=== PATIENT | female | born 1955 | race Caucasian/White ===

== ENCOUNTER 2025-04-20 09:13 | Day surgery (SDC) | payer MEDICARE, SELFPAY ==
[2025-04-19 09:47] VITALS: BMI 28.8
[2025-04-20] MEDS ORDERED: PROPOFOL 40 ML ONE (09:55)
[2025-04-20] MEDS ORDERED: Famotidine/PF 20 mg/2ml Vial ONE (10:32)
[2025-04-20] MEDS ORDERED: Bupivacaine/Epinephrine 0.25% 30 ML VIAL ONE (10:42)
[2025-04-20] MEDS ORDERED: CEFAZOLIN 2 GM VIAL ONE (10:51)
[2025-04-20] MEDS ORDERED: Phenylephrine 40 MG/NS 250 ML 250 ML ONE (11:09)
[2025-04-20] MEDS ORDERED: Ketorolac Tromethamine 30 MG (1 mL) VIAL ONE (11:28)
[2025-04-20] MEDS ORDERED: Lidocaine 1% (PF) 30 ML VIAL ONE (11:28)
[2025-04-20] MEDS ORDERED: Sevoflurane 250 ML INH ANEST BOTTLE ONE (12:45)
== END 2025-04-20 12:50 | disposition home or self-care (01) ==
LOC: CSHSDC 09:13
PROVIDERS: ATTEND Podiatrist Foot & Ankle Surgery
PROC: 0Y6X0Z1 Detachment at Right 5th Toe, High, Open Approach (ICD-10-PCS; principal; 2025-04-20)
DX: S92.501K Displaced unspecified fracture of right lesser toe(s), subsequent encounter for fracture with nonunion (principal); Z88.0 Allergy status to penicillin; Z88.5 Allergy status to narcotic agent; X58.XXXD Exposure to other specified factors, subsequent encounter
CPT/HCPCS: J0665; J1308; J1885; J2003; J2250; J2704; J3010; J3490